=== PATIENT | male | born 1955 | race Caucasian/White ===

== ENCOUNTER 2019-11-25 15:01 | Emergency (ER) | payer BC, SELFPAY ==
[2019-11-25 15:02] VITALS: BP 128/74; PULSE 56; RESP 16; TEMP 36.2; O2SAT 98; BMI 24.7
--- NOTE | 2019-11-25 16:05 | RAD_ITS ---
STUDY: X-RAY - LEFT KNEE REASON FOR EXAM: Male, 64 years old. FALL, PAIN ANTERIOR KNEE, LACERATION TECHNIQUE: 4 view(s) of the knee. COMPARISON: None. FINDINGS: No acute fracture, dislocation or osseous destruction. Mild diffuse arthrosis. Prepatellar soft tissue swelling with possible small foci of associated subcutaneous gas. IMPRESSION: No acute fracture or dislocation. Prepatellar soft tissue swelling with possible small foci of associated subcutaneous gas. May represent cellulitis in the proper clinical setting. Electronically Signed: Perry Winkler, at 17:12 EDT Tel , Service support , RAD/Knee 4 or More Views
--- NOTE | 2019-11-25 16:05 | RAD_ITS ---
STUDY: X-RAY LEFT HAND REASON FOR EXAM: Male, 64 years old. FALL, PAIN PALM OF HAND TECHNIQUE: 3 views of the hand COMPARISON: None. FINDINGS: No acute fracture, dislocation or osseous destruction. Foreshortened distal left fifth digit and distal phalanx may be the result of remote trauma. No significant joint space narrowing. No significant productive changes. No significant soft tissue swelling. RAD/Hand Min 3 Views IMPRESSION: No acute osseous abnormality Electronically Signed: Perry Winkler, at 17:23 EDT Tel , Service support ,
--- NOTE | 2019-11-25 16:06 | ED.VISSUMM ---
- ER Visit Summary Date of Service: 11/25/19 Chief Complaint: [Laceration to left knee] History of Present Illness: The patient is a 64 M [[place]entz to the emergency department complaint of a laceration to his left knee and injury to his left hand. Patient states that he was mowing the lawn and the mower started to slip on an incline and he fell into a ditch with the mower. He believes he hit his knee on a rock lacerating it. Patient unsure of his last tetanus. He denies any head injury. He denies neck pain. Patient thinks he was able to brace himself with his hands and complains of pain to the base of his left hand. Patient otherwise has no medical history.] Physical Examination: [HEENT-PERRLA, EOMI. Cranial nerves II through XII grossly intact. TMs clear. Mucous membranes moist. No adenopathy. Cardiovascular-regular rate and rhythm without murmur or ectopy Lungs-clear to auscultation, chest wall stable without crepitus or subcu emphysema Abdomen-normoactive bowel sounds, soft, nontender, no rebound or rigidity, no peritoneal signs. Extremities-intact ?4, normal range of motion, normal pulses. Left knee-patient has a 5 cm horizontal laceration over the inferior aspect of the patella. He has good range of motion flexion extension. He is able to hold his leg up off the bed without difficulty. Evaluation of the left hand reveals tenderness at the base of the palm with some faint ecchymosis and bruising noted and superficial abrasions. Neurovascular intact distally. No obvious deformity.] Test Results: [X-rays of the left knee obtained showed no fractures and x-rays left hand showed no fractures. Foreign bodies noted within the wound. Patient did have air noted within the wound soft tissues over the knee laceration.] Emergency Department Course and Treatment: [Aspiration repair-wound sterilely draped and prepped. Wound cleansed Shur-Clens and irrigated with copious saline. Wound anesthetized initially locally with 1% lidocaine total of 8 cc. Using 4-0 nylon a total of 4 horizontal mattress sutures placed in 1 single interrupted suture placed with good wound edge approximation. Patient tolerated procedure well. Clean dressing applied. Patient was given Adacel tetanus booster.] Treatment Plan: [Advised to follow-up with primary care physician in 10 days for suture removal. Patient advised to return if increasing pain, redness, swelling, purulent drainage, or condition should worsen anyway.] Disposition: [Discharged home in stable condition] Impression: [Left knee laceration 5 cm-simple repair Contusion left hand Mechanical fall] This note was generated with [employer] dictation software. It may contain incorrect words, spelling, and punctuation that were not noted in review of the chart prior to signing ED Disposition - Plan for ED Patient: Referrals: Micky Choi, [facility] [Primary Care Provider] -
--- NOTE | 2019-11-25 16:56 | DCINST.ED_ITS ---
ED Disposition - Plan for ED Patient: Instructions: ED Laceration Ext Sutr Stap Tape Referrals: Micky Choi, [facility] [Primary Care Provider] - 10 Day for suture removal
--- NOTE | 2019-11-25 16:56 | ED.DEP ---
ED Disposition - Plan for ED Patient: Instructions: ED Laceration Ext Sutr Stap Tape Referrals: Micky Choi, [facility] [Primary Care Provider] - 10 Day for suture removal
[2019-11-25] MEDS: Diphth,Pertuss(Acell),Tet Vac 0.5 ML Vial IM (17:00)
[2019-11-25 17:32] VITALS: BP 129/84; PULSE 53; RESP 18; O2SAT 95
== END 2019-11-25 17:33 | disposition home or self-care (01) ==
LOC: ED 16:59
PROVIDERS: Emergency Provider Emergency Medicine; PCP Nurse Practitioner Family
DX: S81.012A Laceration without foreign body, left knee, initial encounter (principal); S60.222A Contusion of left hand, initial encounter; W10.2XXA Fall (on)(from) incline, initial encounter; Y93.H2 Activity, gardening and landscaping; Y92.007 Garden or yard of unspecified non-institutional (private) residence as the place of occurrence of the external cause
CPT/HCPCS: 12002; 73130; 73564; 90471; 90715; 99283